=== PATIENT | female | born 1965 | race Caucasian/White ===

== ENCOUNTER → 2016-11-11 | Outpatient (CLI) | payer BC ==
[2012-12-07 11:09] VITALS: BP 111/83
--- NOTE | 2016-11-11 12:21 | MG ---
HISTORY: SCREENING Comparison: July 24, 2009 and August 26, 2012 FINDINGS: Bilateral CC and MLO projections of the right and left breast were obtained. Scattered fibroglandul ar tissue is seen to be present without significant interval change. No suspicious architectural di stortion, mass or clustered microcalcifications can be observed to suggest malignancy. No skin thic kening or nipple retraction is appreciated. No pathological lymphadenopathy can be identified. The re are benign appearing intramammary lymph nodes bilaterally. Benign-appearing calcifications are no pavan within the right and left breast. IMPRESSION: NO RADIOGRAPHIC EVIDENCE OF MALIGNANCY. ACR CATEGORY 2 - benign findings. FOLLOW-UP EXAM 1 YEAR. Diagnostic CAD was utilized and reviewed. * 0 (ZERO) - ASSESSMENT INCOMPLETE; ADDITIONAL IMAGING IS NEEDED. * 1/1 (ONE) - NEGATIVE. * 2/II (TWO) - BENIGN FINDINGS. * 3/III (THREE) - PROBABLY BENIGN FINDING; SHORT INTERVAL FOLLOW-UP SUGGESTED. * 4/IV (FOUR) - SUSPICIOUS ABNORMALITY; BIOPSY SHOULD BE CONSIDERED. * 5/V (FIVE) - HIGHLY SUSPICIOUS OF MALIGNANCY; BIOPSY SHOULD BE PERFORMED. A NEGATIVE X-RAY REPORT SHOULD NOT DELAY BIOPSY IF A DOMINANT OR CLINICALLY SUSPICIOUS MASS IS PRESENT; 4 TO 8 PERCENT OF CANCERS ARE NOT IDENTIFIED BY X-RAY. A NEG ATIVE REPORT MAY REINFORCE THE CLINICAL IMPRESSION. ADENOSIS AND DENSE BREASTS MAY OBSCURE AN UNDER LYING NEOPLASM. Reported By:
== END ==
LOC: RAD 09:07
PROVIDERS: ATTEND Nurse Practitioner Family
DX: Z12.31 Encounter for screening mammogram for malignant neoplasm of breast (principal)
CPT/HCPCS: 77067

== ENCOUNTER 2017-02-19 13:39 | Observation (INO) | payer BC ==
--- NOTE | 2017-02-19 14:48 | DR.GENAD ---
HPI - PCP Primary Care Physician: HEMANTH TEAGUE - Complaint/Symptoms Chief Complaint Doctors Comments: I agree with statement as reported. Chief Complaint:: WEAKNESS AND NO ENERGY. HAS HAD A ONEIL BLOOD SUGAR Self Treatment fo Chief Complaint: HAS BEEN ON BLOOD SUGAR MEDS. HAS BEEN SICK WITH A COLD AND CONGESTION FOR THE LAST WEEK - Source History Provided: Patient - Mode of Arrival Mode of Arrival: Ambulatory - Timing Onset of Chief Complaint: 02/14/17 PMH - PMH Past Medical History: Yes Past Medical History: Coronary Artery Disease, Diabetes, Hypertension, Hypothyroidism Past Surgical History: Yes Surgical History: Cholecystectomy - Family History History of Family Medical Conditions: Yes Family Medical History: Diabetes Mellitus, Cancer, [place], Coronary Artery Disease, Heart Failure, Sudden Cardiac , Hypertension - Social History Alcohol Use: None Do you use any recreational Drugs:: No Lives With: Family Lives Where: Home - infectious screening In the last 2 months have you had wt loss of >10#?: NO Have you had fever, night sweats or hemotysis?: No Have you traveled outside the country in the last 6 months?: No Isolation: Standard ROS - Review of Systems Eyes: No Symptoms Reported ENTM: No Symptoms Reported Respiratoy: No Symptoms Reported Cardiovascular: No Symptoms Reported Gastrointestinal/Abdominal: No Symptoms Reported Genitourinary: No Symptoms Reported Neurological: No Symptoms Reported Musculoskeletal: No Symptoms Reported Integumentary: No Symptoms Reported Hematologic/Lymphatic: No Symptoms Reported Endocrine: No Symptoms Reported Psychiatric: No Symptoms Reported All Other Systems: Reviewed and Negative PE - Vital Signs Vitals: Temperature 98.2 F Pulse Rate 101 Respiratory Rate 18 Blood Pressure 122/81 O2 Sat by Pulse Oximetry 98 - General Limitations: No Limitations General Appearance: Alert, In No Apparent Distress - Head Head Exam: Normal Inspection, Atraumatic - Eyes Eye exam: Normal Appearance, PERRL, EOMI - ENT ENT Exam: Normal Exam External Ear Exam: Normal External Inspection TM/Canal Exam: Bilateral Normal Nose Exam: Normal Nose Exam Mouth Exam: Normal Inspection Throat Exam: Normal Inspection - Neck Neck Exam: Normal Inspection - Chest Chest Inspection: Normal Inspection - Respiratory Respiratory Exam: Normal Lung Sounds Bilat Respiratory Exam: Bilateral Clear to Auscultation - Cardiovascular Cardiovascular Exam: Regular Rate, Normal Rhythm - Abdominal Exam Abdominal Exam: Normal Inspection, Normal Bowel Sounds Abdominal Tenderness: negative: RUQ, RLQ, LUQ, LLQ, Epigastrium, Suprapubic, Diffuse, Mild, Moderate, Severe, Other - Extremities Extremities Exam: Normal Inspection, Full ROM - Back Back Exam: Normal Inspection, Full ROM - Neurologic Neurological Exam: Alert, Oriented X3, CN II-XII Intact - Psychiatric Psychiatric Exam: Normal Affect, Normal Mood - Skin Skin Exam: Warm, Dry, Intact Course - Reevaluation 1st: Unchanged - Consultation Called: 16:05 (Dr Sy returned called agreed to admit for further management) ROR - Labs Reviewed Result Diagrams: 02/19/17 14:55 02/19/17 14:55 Laboratory: WBC 16.3 X10^3/uL (3.6-10.0) H 02/19/17 14:55 RBC 5.35 X10^6/uL (3.5-5.4) 02/19/17 14:55 Hgb 15.2 g/dL (12.0-16.0) 02/19/17 14:55 Hct 45.1 % (36.0-47.0) 02/19/17 14:55 MCV 84.3 fL (80.0-100.0) 02/19/17 14:55 MCH 28.5 pg (27.0-34.0) 02/19/17 14:55 MCHC 33.8 g/dL (33.0-35.0) 02/19/17 14:55 RDW 14.2 % (11.6-16.5) 02/19/17 14:55 Plt Count 486 X10^3/uL (150.0-450.0) H 02/19/17 14:55 MPV 9.5 fL (7.4-11.0) 02/19/17 14:55 Neut % 69.4 % (42.0-75.0) 02/19/17 14:55 Lymph % 25.0 % (21.0-51.0) 02/19/17 14:55 [place] % 3.3 % (0.0-13.0) 02/19/17 14:55 Eos % 1.5 % (0.9-2.9) 02/19/17 14:55 Baso % 0.8 % (0.2-1.0) 02/19/17 14:55 Neut # 11.3 x10^3/uL (2.2-4.8) H 02/19/17 14:55 Lymph # 4.1 X10^3/uL (1.3-2.9) H 02/19/17 14:55 [place] # 0.5 x10^3/uL (0.3-0.8) 02/19/17 14:55 Eos # 0.2 x10^3/uL (0.0-0.2) 02/19/17 14:55 Baso # 0.1 X10^3/uL (0.0-0.1) 02/19/17 14:55 Absolute Nucleated RBC 0.1 /100WBC 02/19/17 14:55 Sodium 134 mmol/L (136-145) L 02/19/17 14:55 Corrected Sodium 138 mmol/L (136-145) 02/19/17 14:55 Potassium 4.5 mmol/L (3.5-5.1) 02/19/17 14:55 Chloride 98 mmol/L (98-107) 02/19/17 14:55 Carbon Dioxide 24.1 mmol/L (21-32) 02/19/17 14:55 BUN 48 mg/dL (7-18) H 02/19/17 14:55 Creatinine 1.22 mg/dL (0.55-1.02) H 02/19/17 14:55 Est GFR (MDRD) Af Amer > 60 (>60) 02/19/17 14:55 Est GFR (MDRD) Non-Af 50 (>60) L 02/19/17 14:55 Glucose 273 mg/dL (65-99) H 02/19/17 14:55 Hemoglobin A1c 9.3 % (4.5-6.2) H 02/19/17 14:55 Calcium 9.8 mg/dL (8.5-10.1) 02/19/17 14:55 Corrected Calcium TNP 02/19/17 14:55 Total Bilirubin 0.30 mg/dL (0.2-1.0) 02/19/17 14:55 AST 41 Units/L (15-37) H 02/19/17 14:55 ALT 74 Units/L (12-78) 02/19/17 14:55 Alkaline Phosphatase 51 Units/L (46-116) 02/19/17 14:55 Total Protein 8.7 g/dL (6.4-8.2) H 02/19/17 14:55 Albumin 4.5 g/dL (3.4-5.0) 02/19/17 14:55 Globulin 4.2 g/dL (2.5-4.5) 02/19/17 14:55 Albumin/Globulin Ratio 1.1 Ratio (1.1-2.1) 02/19/17 14:55 Specimen Type Clean catch urine 02/19/17 14:57 Urine Color Yellow (YELLOW) 02/19/17 14:57 Urine Appearance Hazy (CLEAR) 02/19/17 14:57 Urine pH 5.0 (5.0 - 8.0) 02/19/17 14:57 Ur Specific [place] 1.010 (1.000-1.030) 02/19/17 14:57 Urine Protein Negative (NEGATIVE) 02/19/17 14:57 Urine Glucose (UA) 4+ (NEGATIVE) 02/19/17 14:57 Urine Ketones Negative (NEGATIVE) 02/19/17 14:57 Urine Occult Blood Negative (NEGATIVE) 02/19/17 14:57 Urine Nitrite Negative (NEGATIVE) 02/19/17 14:57 Urine Bilirubin Negative (NEGATIVE) 02/19/17 14:57 Urine Urobilinogen Normal (NORMAL) 02/19/17 14:57 Ur Leukocyte Esterase 1+ (NEGATIVE) 02/19/17 14:57 Urine RBC 0-2 /HPF (NEGATIVE) 02/19/17 14:57 Urine WBC 0-2 /HPF (NEGATIVE) 02/19/17 14:57 Ur Squamous Epith Cells Rare /HPF (NEGATIVE) 02/19/17 14:57 Urine Bacteria Trace /HPF (NEGATIVE) 02/19/17 14:57 Ur Culture Indicated? No/not indicated 02/19/17 14:57 - XRAY XRAY Interpreted by: Radiologist (Chest: No acute cardiopulmonary disease) - Diagnosis Discharge Problem: Acute prerenal azotemia, Dehydration - Discharge Plan Condition: Stable - Follow ups/Referrals Follow ups/Referrals: ANGEL TEAGUE [Primary Care Provider] - 3 days - Instructions
[2017-02-19] MEDS ORDERED: NS 1000 ML 1,000 ML IV ONE (14:50)
[2017-02-19] MEDS ORDERED: NS 1000 ML 1,000 ML ONE ×3 (14:58→18:10)
[2017-02-19 15:09] LABS: BASOPHILS # (AUTO) 0.1 X10^3/uL (0.0-0.1); BASOPHILS % (AUTO) 0.8 % (0.2-1.0); EOSINOPHILS # (AUTO) 0.2 x10^3/uL (0.0-0.2); EOSINOPHILS % (AUTO) 1.5 % (0.9-2.9); HEMATOCRIT 45.1 % (36.0-47.0); HEMOGLOBIN 15.2 g/dL (12.0-16.0); LYMPHOCYTES # (AUTO) 4.1 X10^3/uL (1.3-2.9); MEAN CORPUSCULAR HEMOGLOBIN 28.5 pg (27.0-34.0); MEAN CORPUSCULAR HGB CONC 33.8 g/dL (33.0-35.0); MEAN CORPUSCULAR VOLUME 84.3 fL (80.0-100.0); MEAN PLATELET VOLUME 9.5 fL (7.4-11.0); MONOCYTES # (AUTO) 0.5 x10^3/uL (0.3-0.8); MONOCYTES % (AUTO) 3.3 % (0.0-13.0); NEUTROPHILS # (AUTO) 11.3 x10^3/uL (2.2-4.8); NEUTROPHILS % (AUTO) 69.4 % (42.0-75.0); PLATELET COUNT 486 X10^3/uL (150.0-450.0); RED BLOOD COUNT 5.35 X10^6/uL (3.5-5.4); RED CELL DISTRIBUTION WIDTH 14.2 % (11.6-16.5); WHITE BLOOD COUNT 16.3 X10^3/uL (3.6-10.0)
[2017-02-19 15:21] LABS: ALANINE AMINOTRANSFERASE 74 Units/L (12-78); ALBUMIN 4.5 g/dL (3.4-5.0); ALKALINE PHOSPHATASE 51 Units/L (46-116); ASPARTATE AMINO TRANSFERASE 41 Units/L (15-37); BLOOD UREA NITROGEN 48 mg/dL (7-18); CALCIUM 9.8 mg/dL (8.5-10.1); CARBON DIOXIDE 24.1 mmol/L (21-32); CHLORIDE 98 mmol/L (98-107); COR NA(FOR HYPERGLY) 138 mmol/L (136-145); CREATININE 1.22 mg/dL (0.55-1.02); GLUCOSE 273 mg/dL (65-99); SODIUM 134 mmol/L (136-145); TOTAL PROTEIN 8.7 g/dL (6.4-8.2); eGFR BLACK RACES > 60 (>60); eGFR NON BLACK RACES 50 (>60)
[2017-02-19 15:22] LABS: HEMOGLOBIN A1C 9.3 % (4.5-6.2)
--- NOTE | 2017-02-19 15:34 | RAD ---
HISTORY: Weakness Study: Chest two-view Comparison: None Findings: The trachea is midline. The cardiac silhouette is unremarkable. The lungs are clear without focal infiltrate or effusion. The bony thorax is unremarkable. IMPRESSION: 1. No acute cardiopulmonary disease. Reported By:
[2017-02-19 16:19] LABS: BILIRUBIN,URINE NEGATIVE (NEGATIVE); BLOOD/HEMOGLOBIN,URINE NEGATIVE (NEGATIVE); GLUCOSE, URINE 4+ (NEGATIVE); KETONES,URINE NEGATIVE (NEGATIVE); LEUKOCYTE ESTERASE ,URINE 1+ (NEGATIVE); NITRITES,URINE NEGATIVE (NEGATIVE); PROTEIN,URINE NEGATIVE (NEGATIVE); UROBILINOGEN,URINE NORMAL (NORMAL)
[2017-02-19 16:20] LABS: APPEARANCE,URINE HAZY (CLEAR); BACTERIA,URINE TRACE /HPF (NEGATIVE); COLOR,URINE YELLOW (YELLOW); RBC,URINE 0-2 /HPF (NEGATIVE); SQUAMOUS EPITHELIAL CELL,UR RARE /HPF (NEGATIVE)
[2017-02-19] MEDS ORDERED: HumuLIN R SUBCUT PRN (16:31)
[2017-02-19] MEDS: NS 1000 ML 1,000 ML IV SCH ×3 (16:34→23:00)
[2017-02-19] MEDS ORDERED: GLIPIZIDE 20 MG PO SCH (21:00)
[2017-02-19] MEDS ORDERED: GLUCOPHAGE XR PO SCH (21:00)
[2017-02-19] MEDS: TRICOR TAB 160 MG PO SCH (21:28)
[2017-02-19] MEDS: ZOCOR TAB 40 MG PO SCH (21:28)
[2017-02-19] MEDS: NAPROSYN PO SCH (21:28)
[2017-02-20] MEDS: NS 1000 ML 1,000 ML IV SCH ×4 (03:47→16:13)
[2017-02-20] MEDS ORDERED: GLUCOPHAGE ONE ×2 (05:49→15:59)
[2017-02-20] MEDS: GLUCOPHAGE PO SCH ×2 (06:11→16:13)
[2017-02-20 06:13] LABS: BASOPHILS # (AUTO) 0.1 X10^3/uL (0.0-0.1); BASOPHILS % (AUTO) 0.6 % (0.2-1.0); EOSINOPHILS # (AUTO) 0.3 x10^3/uL (0.0-0.2); EOSINOPHILS % (AUTO) 2.9 % (0.9-2.9); HEMATOCRIT 33.8 % (36.0-47.0); HEMOGLOBIN 11.7 g/dL (12.0-16.0); LYMPHOCYTES # (AUTO) 3.8 X10^3/uL (1.3-2.9); LYMPHOCYTES % (AUTO) 36.3 % (21.0-51.0); MEAN CORPUSCULAR HEMOGLOBIN 29.2 pg (27.0-34.0); MEAN CORPUSCULAR HGB CONC 34.8 g/dL (33.0-35.0); MEAN CORPUSCULAR VOLUME 83.9 fL (80.0-100.0); MEAN PLATELET VOLUME 9.4 fL (7.4-11.0); MONOCYTES # (AUTO) 0.4 x10^3/uL (0.3-0.8); MONOCYTES % (AUTO) 4.1 % (0.0-13.0); NEUTROPHILS # (AUTO) 5.8 x10^3/uL (2.2-4.8); NEUTROPHILS % (AUTO) 56.1 % (42.0-75.0); PLATELET COUNT 294 X10^3/uL (150.0-450.0); RED BLOOD COUNT 4.03 X10^6/uL (3.5-5.4); RED CELL DISTRIBUTION WIDTH 13.9 % (11.6-16.5); WHITE BLOOD COUNT 10.4 X10^3/uL (3.6-10.0)
[2017-02-20 06:27] LABS: ALANINE AMINOTRANSFERASE 53 Units/L (12-78); ALBUMIN 3.3 g/dL (3.4-5.0); ALKALINE PHOSPHATASE 35 Units/L (46-116); ASPARTATE AMINO TRANSFERASE 25 Units/L (15-37); BLOOD UREA NITROGEN 31 mg/dL (7-18); CALCIUM 8.4 mg/dL (8.5-10.1); CHLORIDE 107 mmol/L (98-107); CHOL/HDL RATIO 12.8 (0.0-5.0); CHOLESTEROL 204 mg/dL (0-200); COR NA(FOR HYPERGLY) 141 mmol/L (136-145); CREATININE 0.89 mg/dL (0.55-1.02); GLUCOSE 179 mg/dL (65-99); HDL CHOLESTEROL 16 mg/dL (40-60); SODIUM 139 mmol/L (136-145); TOTAL PROTEIN 6.2 g/dL (6.4-8.2); eGFR BLACK RACES > 60 (>60); eGFR NON BLACK RACES > 60 (>60)
[2017-02-20 06:57] LABS: TRIGLYCERIDES 798 mg/dL (0-150)
[2017-02-20] MEDS ORDERED: LEXAPRO ONE (07:43)
[2017-02-20] MEDS: ZESTRIL TAB 10 MG PO SCH (08:15)
[2017-02-20] MEDS: PriLOSEC PO SCH (08:15)
[2017-02-20] MEDS: DAPAGLIFLOZIN PROPANEDIOL 10 MG PO SCH (08:15)
[2017-02-20] MEDS: LEXAPRO PO SCH (08:15)
[2017-02-20] MEDS: ASPIRIN PO SCH (08:15)
[2017-02-20] MEDS: NAPROSYN PO SCH ×2 (08:15→21:30)
[2017-02-20] MEDS: SYNTHROID 175 mcg TAB PO SCH (08:15)
[2017-02-20] MEDS ORDERED: DAPAGLIFLOZIN PROPANEDIOL 5 MG PO SCH (09:00)
[2017-02-20] MEDS: ZOSYN VIAL 4.5 GM 4.5 GM in NS 100 ML IV + SPIKE MINIBAG* 100 ML IV SCH ×3 (09:39→21:29)
[2017-02-20] MEDS ORDERED: GLUCOTROL PO SCH (21:00)
[2017-02-20] MEDS: ZOCOR TAB 40 MG PO SCH (21:30)
[2017-02-20] MEDS: TRICOR TAB 160 MG PO SCH (21:30)
[2017-02-21] MEDS: NS 1000 ML 1,000 ML IV SCH (01:02)
[2017-02-21] MEDS ORDERED: GLUCOPHAGE ONE (06:03)
[2017-02-21] MEDS: ZOSYN VIAL 4.5 GM 4.5 GM in NS 100 ML IV + SPIKE MINIBAG* 100 ML IV SCH (06:13)
[2017-02-21] MEDS: GLUCOPHAGE PO SCH (06:13)
[2017-02-21 06:32] LABS: BASOPHILS # (AUTO) 0.1 X10^3/uL (0.0-0.1); BASOPHILS % (AUTO) 0.9 % (0.2-1.0); EOSINOPHILS # (AUTO) 0.3 x10^3/uL (0.0-0.2); EOSINOPHILS % (AUTO) 3.7 % (0.9-2.9); HEMATOCRIT 30.8 % (36.0-47.0); HEMOGLOBIN 10.6 g/dL (12.0-16.0); LYMPHOCYTES # (AUTO) 3.2 X10^3/uL (1.3-2.9); LYMPHOCYTES % (AUTO) 36.8 % (21.0-51.0); MEAN CORPUSCULAR HEMOGLOBIN 29.4 pg (27.0-34.0); MEAN CORPUSCULAR HGB CONC 34.4 g/dL (33.0-35.0); MEAN CORPUSCULAR VOLUME 85.4 fL (80.0-100.0); MEAN PLATELET VOLUME 10.5 fL (7.4-11.0); MONOCYTES # (AUTO) 0.4 x10^3/uL (0.3-0.8); MONOCYTES % (AUTO) 4.3 % (0.0-13.0); NEUTROPHILS # (AUTO) 4.8 x10^3/uL (2.2-4.8); NEUTROPHILS % (AUTO) 54.3 % (42.0-75.0); PLATELET COUNT 228 X10^3/uL (150.0-450.0); RED BLOOD COUNT 3.61 X10^6/uL (3.5-5.4); RED CELL DISTRIBUTION WIDTH 13.9 % (11.6-16.5); WHITE BLOOD COUNT 8.8 X10^3/uL (3.6-10.0)
[2017-02-21 06:35] LABS: ALANINE AMINOTRANSFERASE 48 Units/L (12-78); ALBUMIN 3.1 g/dL (3.4-5.0); ALKALINE PHOSPHATASE 32 Units/L (46-116); ASPARTATE AMINO TRANSFERASE 18 Units/L (15-37); BLOOD UREA NITROGEN 23 mg/dL (7-18); CALCIUM 8.3 mg/dL (8.5-10.1); CARBON DIOXIDE 23.8 mmol/L (21-32); CHLORIDE 109 mmol/L (98-107); COR NA(FOR HYPERGLY) 145 mmol/L (136-145); CREATININE 0.93 mg/dL (0.55-1.02); GLUCOSE 261 mg/dL (65-99); SODIUM 141 mmol/L (136-145); TOTAL PROTEIN 5.8 g/dL (6.4-8.2); eGFR BLACK RACES > 60 (>60); eGFR NON BLACK RACES > 60 (>60)
[2017-02-21] MEDS ORDERED: LEXAPRO ONE (08:51)
[2017-02-21] MEDS: PriLOSEC PO SCH (08:54)
[2017-02-21] MEDS: ASPIRIN PO SCH (08:55)
[2017-02-21] MEDS: SYNTHROID 175 mcg TAB PO SCH (08:55)
[2017-02-21] MEDS: ZESTRIL TAB 10 MG PO SCH (08:55)
[2017-02-21] MEDS: DAPAGLIFLOZIN PROPANEDIOL 10 MG PO SCH (08:55)
[2017-02-21] MEDS: LEXAPRO PO SCH (08:55)
[2017-02-21] MEDS: NAPROSYN PO SCH (08:55)
[2017-02-21 09:15] VITALS: BP 102/54
[2017-02-21 09:50] VITALS: BMI 29.5
--- NOTE | 2017-02-21 22:09 | DR.H&P ---
H&P - History & Physical for Day of: H&P Date: 02/19/17 - Chief Complaint Chief Complaint: Hyperglycenia, weakness - Allergies Allergies/Adverse Reactions: Allergies Allergy/AdvReac Type Severity Reaction Status Date / Time codeine Allergy Unknown Verified 02/20/17 06:09 - History of Present Illness History of Present Illness: Patient is a 51yo female who presented to the emergency room with complaints of weakness, fatigue and hyperglycemia. Patient state she has been sick with a cold and congestion for the last week. Patient has a history of Coronary artery disease, diabetes mellitus type 2, hypertension , hypothyroidism. Vital signs on arrival 98.2, 101, 18, 98%, 122/81. Labs are within normal limits with the exception of WBC 16.3, Plt count 486, Neut# 11.3, Lymph# 4.1, Sodium 134, BUN 48, Creatinine 1.22, Est GFR 50, Glucose 273, Hgb A1C 9.3, AST 41, Total Protein 8.7. Streptococcus Screen positive A. Chest Xray no acute cardiopulmonary disease. Patient given a nS bolus in the ER, Patient admitted with prerenal azotemia and dehydration. PAteitn started on OTBS ACHS. Home medications resumed and started on NS@300 ml/hr. - Past Medical History Past Medical History: Coronary Artery Disease, Diabetes, Dyslipidemia, Hypertension, Hypothyroidism - Past Surgical History Surgical History: Cholecystectomy - Family History Family Medical History: Diabetes Mellitus, Cancer, [place], Coronary Artery Disease, Hypertension - Social History Does patient currently use any type of tobacco product: No Have you used tobacco products in the last 12 months: No Type of Tobacco Use: None Does any household member use tobacco: No Alcohol Use: None Drug Use: None - Medications Home Medications: Aspirin [ASPIRIN 325 MG *] 325 mg PO DAILY 02/19/17 [History Confirmed 02/19/17] Dapagliflozin Propanediol [Farxiga] 10 mg PO DAILY 02/19/17 [History Confirmed 02/19/17] Diclofenac Sodium 75 mg PO BID 02/19/17 [History Confirmed 02/19/17] Escitalopram Oxalate [LEXAPRO 10 MG TAB *] 10 mg PO DAILY 02/19/17 [History Confirmed 02/19/17] Fenofibrate [TRICOR 160 MG *] 160 mg PO HS 02/19/17 [History Confirmed 02/19/17] Glipizide [Glipizide 10 mg] 20 mg PO HS 02/19/17 [History Confirmed 02/19/17] Levothyroxine Sodium 175 mcg PO DAILY 02/19/17 [History Confirmed 02/19/17] Lisinopril [ZESTRIL *] 10 mg PO DAILY 02/19/17 [History Confirmed 02/19/17] - Review of Systems Constitutional: Weakness Eyes: No Symptoms Reported ENT: Nose Discharge, Nose Congestion, Throat Pain Respiratory: No Symptoms Reported Cardiovascular: No Symptoms Reported Gastrointestinal: No Symptoms Reported Genitourinary: No Symptoms Reported Musculoskeletal: No Symptoms Reported Skin: No Symptoms Reported Neurological: Weakness - Physical Exam Vital Signs: 98.2, 101, 18, 98%, 122/81 Oriented: Normal Eyes: Normal Ear: Normal Nose: Normal Throat: Normal Respiratory: Clear Throughout Cardiovascular: Normal : Normal Auscultation: Bowel Sounds: Normal Palpation: Normal Tenderness: Normal Skin: Decreased Turgur Musculoskeletal: Normal Psychiatric: Normal Mood Description: Calm, Appropriate Affect: Normal Speech Pattern: Clear, Appropriate - Assessment/Plan (1) Acute prerenal azotemia Status: Acute Plan: NS@300ml, monitor (2) Dehydration Status: Acute Plan: NS@300ml, monitor (3) Diabetes mellitus, type 2 Qualifiers: Diabetes mellitus complication status: D Diabetes mellitus complication detail: D Diabetic retinopathy severity: D Proliferative retinopathy type: P Diabetes mellitus macular edema: D 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
--- NOTE | 2017-02-21 22:15 | PCM.PROG ---
Progress Note - Progress Note for Day of Date: 02/20/17 - Subjective Subjective: Patient states she is still feeling rough this am. Patient laying in bed and appears ill. We are going to start patient on zoyn 4.5gm IV Q8hr and decreased her fluid to 150. Vital sign this am 97.9, 63, 18, 96%, 102/51. Labs within normal limits with the exception of WBC 10.4, Hgb 11.7, Hct 33.8, Neut# 5.8, Lymph# 3.8, Eos# 0.3, BUN 31, Glucose 179, Calcium 8.4, Alkaline Phosphatase 35, total Protein 6.2, Albumin 3.3, Triglycerides 798, Cholesterol 204, HS=DL 16, Cholesterol/HDL Ratio 12.8. WE will continue patient on current treatment with the addition of zosyn for her strep throat and follow up in the am with repeat lab. - Past Medical Family Social History Past Med/Fam/Surg Hx: No changes since H&P Allergies: Allergies codeine Allergy (Unknown, Verified 02/20/17 06:09) - Review of Systems ROS: No change since H&P - Vital Signs and I&O's Vital Signs: 97.9, 63, 18, 96%, 102/51 Intake and Output: Intake & Output 02/19/17 02/20/17 02/21/17 02/22/17 11:59 11:59 11:59 11:59 Intake Total 3013 3680 Balance 3013 3680 - Physical Exam Oriented: Normal Eyes: Normal Ear: Normal Nose: Normal Throat: Normal Respiratory: Normal Cardiovascular: Normal : Normal Auscultation: Bowel Sounds: Normal Palpation: Normal Tenderness: Normal Skin: Decreased Turgur Musculoskeletal: Normal Psychiatric: Normal Mood Description: Calm, Appropriate Affect: Normal Speech Pattern: Clear, Appropriate - Laboratory and Diagnostics Result Diagrams: 02/21/17 04:55 02/21/17 04:55 Labs: Labs within normal limits with the exception of WBC 10.4, Hgb 11.7, Hct 33.8, Neut# 5.8, Lymph# 3.8, Eos# 0.3, BUN 31, Glucose 179, Calcium 8.4, Alkaline Phosphatase 35, total Protein 6.2, Albumin 3.3, Triglycerides 798, Cholesterol 204, HS=DL 16, Cholesterol/HDL Ratio 12.8. 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
--- NOTE | 2017-02-21 22:23 | DR.CARTERD ---
- Discharge Summary for: Discharge Summary for Date of:: 02/21/17 - Admission Date Date of Admission: 02/19/17 - Admission Diagnoses Admission Diagnosis: Prerenal azotemia. Dehydration. Diabet Mellitus Type 2. Hypertension. Hyperlipidemia. Hypertriglyceridemia - Discharge Date Discharge Date: 02/21/17 - Discharge Diagnoses Discharge Diagnosis: SStreptcoccal pharyngitis Prerenal azotemia Dehydration Diabet Mellitus Type 2 Hypertension Hyperlipidemia Hypertriglyceridemia - Hospital Course Hospital Course: Patient states she is feeling much better this am. Vital signs are 97.8, 55, 18 , 96%, 102/55. Labs within normal limits with the exception og Hgb 10.6, Hct 30.8, Eos% 3.7, Lymph# 3.2, Eos# 0.3, Chloride 109, BUN 23, Glucose 261, Calcium 8.3, Alkaline phosphatase 32, Total Protein 5.8, Albumin 3.1. We are going to discharge her home to follow up in 1 week in table condtion. Patient is to resume her home medication with the addition of Augmentin 875mg PO BID for 7days. Labs: Labs within normal limits with the exception og Hgb 10.6, Hct 30.8, Eos% 3.7, Lymph# 3.2, Eos# 0.3, Chloride 109, BUN 23, Glucose 261, Calcium 8.3, Alkaline phosphatase 32, Total Protein 5.8, Albumin 3.1. - Discharge Medications Discharge Medications: Aspirin [ASPIRIN 325 MG *] 325 mg PO DAILY 02/19/17 [History] Dapagliflozin Propanediol [Farxiga] 10 mg PO DAILY 02/19/17 [History] Diclofenac Sodium 75 mg PO BID 02/19/17 [History] Escitalopram Oxalate [LEXAPRO 10 MG TAB *] 10 mg PO DAILY 02/19/17 [History] Fenofibrate [TRICOR 160 MG *] 160 mg PO HS 02/19/17 [History] Glipizide [Glipizide 10 mg] 20 mg PO HS 02/19/17 [History] Levothyroxine Sodium 175 mcg PO DAILY 02/19/17 [History] Lisinopril [ZESTRIL *] 10 mg PO DAILY 02/19/17 [History] Amoxicillin & Pot Clavulanate [AUGMENTIN TAB 875 mg/125 mg *] 1 tab PO BID #28 tab 02/21/17 [Rx] - Discharge Disposition Discharge Disposition: Home
== END 2017-02-21 10:00 | disposition home or self-care (01) ==
LOC: ER 13:53 → MED/SURG 16:28
PROVIDERS: ADMIT Internal Medicine; ATTEND Internal Medicine
DX: E86.0 Dehydration (principal); I25.10 Atherosclerotic heart disease of native coronary artery without angina pectoris; E11.65 Type 2 diabetes mellitus with hyperglycemia; I10 Essential (primary) hypertension; E03.8 Other specified hypothyroidism; R53.1 Weakness; E78.2 Mixed hyperlipidemia; J02.0 Streptococcal pharyngitis; E78.1 Pure hyperglyceridemia; D72.828 Other elevated white blood cell count; R94.4 Abnormal results of kidney function studies
CPT/HCPCS: 36415; 71020; 80053; 80061; 81001; 83036; 85025; 87880; 94760; 96365; 96367; 99284; A4222; G0378; J2543

== ENCOUNTER 2017-11-06 14:32 | Inpatient (IN) | payer BC ==
[2017-11-06 14:49] VITALS: BMI 26.6
[2017-11-06] MEDS ORDERED: NS 1000 ML 1,000 ML ONE (14:55)
[2017-11-06] MEDS ORDERED: CARDIZEM INJ 125 MG VIAL 125 MG in NS 100 ML IV 100 ML IV PRN (15:17)
[2017-11-06] MEDS ORDERED: CARDIZEM INJ 50 MG VIAL IVP ONE ×2 (15:20→15:21)
[2017-11-06] MEDS ORDERED: CARDIZEM INJ 50 MG VIAL ONE ×2 (15:22→16:50)
--- NOTE | 2017-11-06 15:22 | DR.GENAD ---
HPI - Complaint/Symptoms Chief Complaint Doctors Comments: Patient is complaining of chest discomfort with SOB with her heart beating fast for a short period for the past five days. States it went away earlier and it came back with achest discomfort when her heart beat fast with with discomfort in her throat. She denies nausea, vomiting , cold, cough, fever or chills. She denies tobaccor or alcohol usage. States she is taking medicines for high blood pressure and thyroid medicines. states she has taken an aspirin 325mg today. She denies swelling of feet or legs. She denies any recent trauma. Chief Complaint:: " PT C/O CALLING INTO WORK ON WEDNESDAY THAT SHE THOUGHT SHE HAD A PULLED MUSCLE BUT IT IS GETTING WORSE PT C/O FEELING LIKE HER HEART IS FLUTTERING AND SPEEDING UP AND SLOWING DOWN PT DENIES ANY PAIN JUST, SOB AND TIGHTNESS TO HER CHEST":. Self Treatment fo Chief Complaint: PT TOOK ASA 325 MG .. - Nurses notes reviewed Nurses Notes Review: Yes - Source History Provided: Patient - Mode of Arrival Mode of Arrival: Ambulatory - Timing Onset of Chief Complaint: 11/03/17 Came on: Gradually - Duration Duration: Intermittent How lon Duration: Days - Location Location: xiphoid - Severity Severity: Moderate - Modifying Factors Worsens:: palpation Improves:: nothing PMH - PMH Past Medical History: Yes Past Medical History: Coronary Artery Disease, Diabetes, Dyslipidemia, Hypertension, Hypothyroidism Past Surgical History: Yes Surgical History: Cholecystectomy - Family History History of Family Medical Conditions: Yes Family Medical History: Diabetes Mellitus, Cancer, [place], Coronary Artery Disease, Hypertension - Social History Does patient currently use any type of tobacco product: No Have you used tobacco products in the last 12 months: No Type of Tobacco Use: None Does any household member use tobacco: No Alcohol Use: None Do you use any recreational Drugs:: No Lives With: Family Lives Where: Home - infectious screening In the last 2 months have you had wt loss of >10#?: NO Have you had fever, night sweats or hemotysis?: No Have you traveled outside the country in the last 6 months?: No Isolation: Standard ROS - Review of Systems Constitutional: No Symptoms Reported. negative: See HPI, Chills, Diaphoresis, Fever, Malaise, Weakness, Irritable, Fatigue, Loss of Appetite, Other Eyes: No Symptoms Reported ENTM: No Symptoms Reported. negative: See HPI, Ear Pain, Ear Discharge, Pulling on Ears, Hearing Loss, Nose Pain, Nose Discharge, Epistaxis, Nose Congestion, Mouth Pain, Mouth Swelling, Loose Teeth, Drooling, Throat Pain, Throat Swelling, Ear Foreign Body Respiratoy: No Symptoms Reported, Short of Breath. negative: See HPI, Productive Cough, Non-Productive Cough, Moist Cough, Dry Cough, Hacking Cough, Barking Cough, Brassy Cough, Orthopnea, Stridor, Wheezing, Hemoptysis, Other Cardiovascular: No Symptoms Reported, Chest Pain, Palpitations. negative: See HPI, Edema, Syncope, Cyanosis, Skin Mottling, Other Gastrointestinal/Abdominal: No Symptoms Reported. negative: See HPI, Abdominal Pain, Constipation, Diarrhea, Nausea, Vomiting, Food Intolerance, Other Genitourinary: No Symptoms Reported Neurological: No Symptoms Reported, Anxiety, Emotional Problems. negative: See HPI, Depressed, Headache, Numbness, Paresthesia, Pre-existing Deficit, Seizure, Tingling, Tremors, Weakness, Dizziness, Problems Walking, Speech Problem, Other Musculoskeletal: No Symptoms Reported. negative: See HPI, Back Pain, Gout, Joint Pain, Joint Swelling, Muscle Pain, Muscle Stiffness, Neck Pain, Right, Left, Neck, Chest wall, Rib(s), Back, Shoulder, Arm, Elbow, Forearm, Wrist, Hand , Pelvis, Hip, Leg, Knee, Ankle, Foot, Other Integumentary: No Symptoms Reported Hematologic/Lymphatic: No Symptoms Reported Endocrine: No Symptoms Reported. negative: See HPI, Excessive Sweating, Flushing, Intolerance to Cold, Intolerance to Heat, Increased Hunger, Increased Thirst, Increased Urine, Unexplained Weight Gain, Unexplained Weight Loss, Failure to Thrive, Decreased Appetite, Other Psychiatric: No Symptoms Reported, Anxiety. negative: See HPI, Depression, Hallucinations, Excessive crying, Suicidal, Other PE - Vital Signs Vitals: Temperature 98.2 F Pulse Rate [Left Apical] 94 Pulse Rate 20 Respiratory Rate 20 Blood Pressure [Right Arm] 126/61 Blood Pressure 190/90 O2 Sat by Pulse Oximetry 94 - General Limitations: No Limitations General Appearance: Alert, In Distress (moderate) - Head Head Exam: Normal Inspection, Atraumatic, Normocephalic - Eyes Eye exam: Normal Appearance, PERRL, EOMI. negative: Scleral Icterus, Conjunctival Injection, Nystagmus, Miosis, Mydrasis, Periorbital Swelling, Periorbital Tenderness, Other - ENT ENT Exam: Normal Exam, Normal Oropharynx, Normal External Ear Exam, Mucous Membranes Moist, TM's Normal Bilaterally External Ear Exam: Normal External Inspection TM/Canal Exam: Bilateral Normal Nose Exam: Normal Nose Exam Mouth Exam: Normal Inspection. negative: Drooling, Trismus, Lip Swelling, Tongue Elevation, Tongue Swelling, Laceration, Other Throat Exam: Normal Inspection. negative: Tonsillar Erythema, Tonsillomegaly, Tonsillar Exudate, R Peritonsillar Mass, L Peritonsillar Mass, Muffled Voice, Other - Neck Neck Exam: Normal Inspection, Full ROM, Trachea Midline. negative: Tenderness, Meningismus, Lymphadenopathy, Thyromegaly, Other - Chest Chest Inspection: Normal Inspection, Symmetric Chest Wall Rise. negative: Tenderness, Rash, Abscess, Other - Respiratory Respiratory Exam: Normal Lung Sounds Bilat Respiratory Exam: Bilateral Clear to Auscultation - Cardiovascular Cardiovascular Exam: Irregular Rhythm, Systolic Murmur - Abdominal Exam Abdominal Exam: Normal Inspection, Normal Bowel Sounds, Soft. negative: Distention, Tenderness, Guarding, Rebound, Rigidity, Dimnished Bowel Sounds, Hyperactive Bowel Sounds, Hypoactive Bowel Sounds, Organomegaly, Trauma, Incision, Ascites, Mass, Bruit, Pulsatile Mass, Hernia, Other Abdominal Tenderness: negative: RUQ, RLQ, LUQ, LLQ, Epigastrium, Suprapubic, Diffuse, Mild, Moderate, Severe, Other - Extremities Extremities Exam: Normal Inspection, Full ROM, Normal Capillary Refill. negative: Tenderness, Edema, Joint Swelling, Calf Tenderness, Other - Back Back Exam: Normal Inspection, Full ROM - Neurologic Neurological Exam: Alert, Oriented X3, CN II-XII Intact, Reflexes Normal. negative: Normal Gait (gait not tested) - Psychiatric Psychiatric Exam: Normal Affect, Normal Mood. negative: Depressed, Agitated, Anxious, Flat Affect, Manic, Homicidal Ideation, Suicidal Ideation, Other - Skin Skin Exam: Warm, Dry, Intact, Normal Color Course - Consultation Called: 17:53 Call Returned: 17:53 (Dr. Rajput to admit) - Education/Counseling Education/Counseling: Patient, Family Educated On: Treatment, Diagnosis, Needs for Follow Up ROR - Labs Reviewed Laboratory Results Reviewed?: Yes (All labs and xray results reviewed and discussed with patient) Result Diagrams: 03/10/18 15:15 11/06/17 15:15 Laboratory: WBC 9.6 X10^3/uL (3.6-10.0) 11/06/17 15:15 RBC 4.76 X10^6/uL (3.5-5.4) 11/06/17 15:15 Hgb 13.6 g/dL (12.0-16.0) 11/06/17 15:15 Hct 40.2 % (36.0-47.0) 11/06/17 15:15 MCV 84.4 fL (80.0-100.0) 11/06/17 15:15 MCH 28.6 pg (27.0-34.0) 11/06/17 15:15 MCHC 33.8 g/dL (33.0-35.0) 11/06/17 15:15 RDW 14.8 % (11.6-16.5) 11/06/17 15:15 Plt Count 306 X10^3/uL (150.0-450.0) 11/06/17 15:15 MPV 9.6 fL (7.4-11.0) 11/06/17 15:15 Neut % 60.0 % (42.0-75.0) 11/06/17 15:15 Lymph % 33.0 % (21.0-51.0) 11/06/17 15:15 [place] % 4.3 % (0.0-13.0) 11/06/17 15:15 Eos % 1.7 % (0.9-2.9) 11/06/17 15:15 Baso % 1.0 % (0.2-1.0) 11/06/17 15:15 Neut # 5.7 x10^3/uL (2.2-4.8) H 11/06/17 15:15 Lymph # 3.2 X10^3/uL (1.3-2.9) H 11/06/17 15:15 [place] # 0.4 x10^3/uL (0.3-0.8) 11/06/17 15:15 Eos # 0.2 x10^3/uL (0.0-0.2) 11/06/17 15:15 Baso # 0.1 X10^3/uL (0.0-0.1) 11/06/17 15:15 Absolute Nucleated RBC 0.0 /100WBC 11/06/17 15:15 INR Target Range - 11/06/17 15:15 INR 0.98 (0.8-1.3) 11/06/17 15:15 PTT 23.5 SECONDS (22.9-36.5) 11/06/17 15:15 PTT Comment - 11/06/17 15:15 D-Dimer < 100 ng/mL (0-400) 11/06/17 15:15 Sodium 136 mmol/L (136-145) 11/06/17 15:15 Corrected Sodium 145 mmol/L (136-145) 11/06/17 15:15 Potassium 4.5 mmol/L (3.5-5.1) 11/06/17 15:15 Chloride 100 mmol/L (98-107) 11/06/17 15:15 Carbon Dioxide 24.8 mmol/L (21-32) 11/06/17 15:15 BUN 45 mg/dL (7-18) H 11/06/17 15:15 Creatinine 1.37 mg/dL (0.55-1.02) H 11/06/17 15:15 Est GFR (MDRD) Af Amer 52 (>60) L 11/06/17 15:15 Est GFR (MDRD) Non-Af 43 (>60) L 11/06/17 15:15 Glucose 473 mg/dL (65-99) H 11/06/17 15:15 Calcium 9.1 mg/dL (8.5-10.1) 11/06/17 15:15 Corrected Calcium TNP 11/06/17 15:15 Magnesium 1.8 mg/dL (1.7-2.9) 11/06/17 15:15 Total Bilirubin 0.20 mg/dL (0.2-1.0) 11/06/17 15:15 AST 22 Units/L (15-37) 11/06/17 15:15 ALT 49 Units/L (12-78) 11/06/17 15:15 Alkaline Phosphatase 52 Units/L (46-116) 11/06/17 15:15 Creatine Kinase 29 Units/L (26-192) 11/06/17 15:15 CK-MB (CK-2) < 1.0 ng/mL (0-4.0) 11/06/17 15:15 CK/CKMB % Calc 3.5 % (<4) 11/06/17 15:15 Troponin I < 0.02 ng/mL (0-1.5) 11/06/17 15:15 Total Protein 7.4 g/dL (6.4-8.2) 11/06/17 15:15 Albumin 3.8 g/dL (3.4-5.0) 11/06/17 15:15 Globulin 3.6 g/dL (2.5-4.5) 11/06/17 15:15 Albumin/Globulin Ratio 1.1 Ratio (1.1-2.1) 11/06/17 15:15 Free T4 1.14 ng/dL (0.76-1.46) 11/06/17 15:15 TSH 3rd Generation 2.621 uIU/mL (0.358-3.74) 11/06/17 15:15 - XRAY XRAY Interpreted by: Radiologist (CXR: No acute cardiopulmonary process) - EKG Rate: 127 [place]: Normal Rhythm: Afib Block: None Hypertrophy: None ST: Nonsp - Diagnosis Discharge Problem: Atrial fibrillation with RVR, Essential hypertension, Dehydration Diabetes mellitus type 1, uncontrolled Qualifiers: Chronic kidney disease stage: stage 3 (moderate) Chest pain Qualifiers: Chest pain type: other chest pain Qualified Code(s): R07.89 - Other chest pain ; R07.8 - Other chest pain Chronic kidney disease Qualifiers: Chronic kidney disease stage: stage 3 (moderate) Qualified Code(s): N18.3 - Chronic kidney disease, stage 3 (moderate) - Discharge Plan Disposition: ADMITTED INPATIENT Condition: Stable - Follow ups/Referrals Follow ups/Referrals: ANGEL TEAGUE [Primary Care Provider] - 3 days - Instructions
[2017-11-06 15:35] LABS: BASOPHILS # (AUTO) 0.1 X10^3/uL (0.0-0.1); EOSINOPHILS # (AUTO) 0.2 x10^3/uL (0.0-0.2); EOSINOPHILS % (AUTO) 1.7 % (0.9-2.9); HEMATOCRIT 40.2 % (36.0-47.0); HEMOGLOBIN 13.6 g/dL (12.0-16.0); LYMPHOCYTES # (AUTO) 3.2 X10^3/uL (1.3-2.9); MEAN CORPUSCULAR HEMOGLOBIN 28.6 pg (27.0-34.0); MEAN CORPUSCULAR HGB CONC 33.8 g/dL (33.0-35.0); MEAN CORPUSCULAR VOLUME 84.4 fL (80.0-100.0); MEAN PLATELET VOLUME 9.6 fL (7.4-11.0); MONOCYTES # (AUTO) 0.4 x10^3/uL (0.3-0.8); MONOCYTES % (AUTO) 4.3 % (0.0-13.0); NEUTROPHILS # (AUTO) 5.7 x10^3/uL (2.2-4.8); PLATELET COUNT 306 X10^3/uL (150.0-450.0); RED BLOOD COUNT 4.76 X10^6/uL (3.5-5.4); RED CELL DISTRIBUTION WIDTH 14.8 % (11.6-16.5); WHITE BLOOD COUNT 9.6 X10^3/uL (3.6-10.0)
[2017-11-06] MEDS ORDERED: NS 100 ML IV 100 ML IV ONE (15:41)
[2017-11-06] MEDS ORDERED: CARDIZEM INJ 125 MG VIAL ONE (15:41)
--- NOTE | 2017-11-06 15:59 | RAD ---
History: Chest pain. Study: Single-view chest. Comparison: 02/19/2017. Findings: The trachea is midline. The cardiac silhouette is within normal limits. The lungs are clear without f ocal consolidation, pleural effusion or pneumothorax. The bony thorax is grossly unremarkable. Impression: No acute cardiopulmonary process. Reported By:
[2017-11-06] MEDS ORDERED: NS 1000 ML 1,000 ML IV SCH (16:00)
[2017-11-06] MEDS ORDERED: HumuLIN R IV PRN (16:02)
[2017-11-06 16:14] LABS: ALANINE AMINOTRANSFERASE 49 Units/L (12-78); ALBUMIN 3.8 g/dL (3.4-5.0); ALKALINE PHOSPHATASE 52 Units/L (46-116); ASPARTATE AMINO TRANSFERASE 22 Units/L (15-37); BLOOD UREA NITROGEN 45 mg/dL (7-18); CALCIUM 9.1 mg/dL (8.5-10.1); CARBON DIOXIDE 24.8 mmol/L (21-32); CHLORIDE 100 mmol/L (98-107); CKMB % 3.5 % (<4); COR NA(FOR HYPERGLY) 145 mmol/L (136-145); CREATINE KINASE 29 Units/L (26-192); CREATINE KINASE MB < 1.0 ng/mL (0-4.0); CREATININE 1.37 mg/dL (0.55-1.02); FREE T4 (FREE THYROXINE) 1.14 ng/dL (0.76-1.46); MAGNESIUM 1.8 mg/dL (1.7-2.9); SODIUM 136 mmol/L (136-145); TOTAL PROTEIN 7.4 g/dL (6.4-8.2); TROPONIN I < 0.02 ng/mL (0-1.5); TSH (3RD GENERATION) 2.621 uIU/mL (0.358-3.74); eGFR NON BLACK RACES 43 (>60)
[2017-11-06 16:17] LABS: eGFR BLACK RACES 52 (>60)
[2017-11-06] MEDS ORDERED: ATIVAN TAB 1 MG PO PRN (17:59)
[2017-11-06] MEDS ORDERED: MORPHINE SULFATE INJ 2 MG INJ IVP PRN (17:59)
[2017-11-06] MEDS: PROTONIX INJ 40 MG VIAL IVP SCH (18:38)
[2017-11-06] MEDS: NS 1000 ML 1,000 ML IV SCH (18:38)
[2017-11-06 20:40] LABS: CKMB % 4.6 % (<4); CREATINE KINASE 22 Units/L (26-192); CREATINE KINASE MB < 1.0 ng/mL (0-4.0); TROPONIN I < 0.02 ng/mL (0-1.5)
[2017-11-06] MEDS: HumuLIN R SC PRN (20:47)
[2017-11-06] MEDS: LOVENOX INJ 80 MG SYR SC SCH (20:48)
[2017-11-06] MEDS: SNACK - Diabetic Appropriate PO SCH (20:49)
[2017-11-06] MEDS: LOPRESSOR TAB 25 MG PO SCH (21:34)
[2017-11-07] MEDS: NS 1000 ML 1,000 ML IV SCH ×5 (00:18→22:10)
[2017-11-07] MEDS: HumuLIN R SC PRN ×5 (05:42→21:43)
[2017-11-07 06:09] LABS: BASOPHILS # (AUTO) 0.1 X10^3/uL (0.0-0.1); BASOPHILS % (AUTO) 0.9 % (0.2-1.0); EOSINOPHILS # (AUTO) 0.2 x10^3/uL (0.0-0.2); HEMATOCRIT 35.9 % (36.0-47.0); HEMOGLOBIN 12.3 g/dL (12.0-16.0); LYMPHOCYTES # (AUTO) 4.4 X10^3/uL (1.3-2.9); LYMPHOCYTES % (AUTO) 46.7 % (21.0-51.0); MEAN CORPUSCULAR HEMOGLOBIN 28.7 pg (27.0-34.0); MEAN CORPUSCULAR HGB CONC 34.3 g/dL (33.0-35.0); MEAN CORPUSCULAR VOLUME 83.8 fL (80.0-100.0); MEAN PLATELET VOLUME 9.4 fL (7.4-11.0); MONOCYTES # (AUTO) 0.3 x10^3/uL (0.3-0.8); MONOCYTES % (AUTO) 3.6 % (0.0-13.0); NEUTROPHILS # (AUTO) 4.4 x10^3/uL (2.2-4.8); NEUTROPHILS % (AUTO) 46.8 % (42.0-75.0); PLATELET COUNT 297 X10^3/uL (150.0-450.0); RED BLOOD COUNT 4.29 X10^6/uL (3.5-5.4); RED CELL DISTRIBUTION WIDTH 14.4 % (11.6-16.5); WHITE BLOOD COUNT 9.4 X10^3/uL (3.6-10.0)
[2017-11-07 06:40] LABS: ALANINE AMINOTRANSFERASE 43 Units/L (12-78); ALBUMIN 3.3 g/dL (3.4-5.0); ALKALINE PHOSPHATASE 39 Units/L (46-116); ASPARTATE AMINO TRANSFERASE 23 Units/L (15-37); BLOOD UREA NITROGEN 32 mg/dL (7-18); CALCIUM 8.4 mg/dL (8.5-10.1); CARBON DIOXIDE 23.3 mmol/L (21-32); CHLORIDE 108 mmol/L (98-107); CHOL/HDL RATIO 11.4 (0.0-5.0); CHOLESTEROL 205 mg/dL (0-200); COR NA(FOR HYPERGLY) 144 mmol/L (136-145); CREATINE KINASE 20 Units/L (26-192); CREATINE KINASE MB < 1.0 ng/mL (0-4.0); CREATININE 0.96 mg/dL (0.55-1.02); HDL CHOLESTEROL 18 mg/dL (40-60); SODIUM 141 mmol/L (136-145); TOTAL PROTEIN 6.4 g/dL (6.4-8.2); TRIGLYCERIDES 755 mg/dL (0-150); TROPONIN I < 0.02 ng/mL (0-1.5); eGFR BLACK RACES > 60 (>60); eGFR NON BLACK RACES > 60 (>60)
[2017-11-07] MEDS: LOVENOX INJ 80 MG SYR SC SCH ×2 (08:32→21:42)
[2017-11-07] MEDS: LOPRESSOR TAB 25 MG PO SCH ×2 (08:32→21:42)
[2017-11-07] MEDS: PROTONIX INJ 40 MG VIAL IVP SCH (08:32)
--- NOTE | 2017-11-07 11:31 | DR.H&P ---
H&P - History & Physical for Day of: H&P Date: 11/06/17 - Chief Complaint Chief Complaint: CHEST PAIN, SOB - Allergies Allergies/Adverse Reactions: Allergies Allergy/AdvReac Type Severity Reaction Status Date / Time codeine Allergy Unknown Verified 11/06/17 14:39 - History of Present Illness History of Present Illness: 52WF ER ADMISSION AFTER PRESENTING WITH CO CP AND SOB SINCE LAST WEDNESDAY. PT DENIES ANY HX OF AFIB OR CAD. PT HAS HTN AND DM. PT WAS IN AFIB WITH RVR ON ADMISSION. PT ADMITTED TO ICU FOR CARDIAC MONITORING AND TREATMENT FOR ATRIAL FIBRILLATION - Past Medical History Past Medical History: Coronary Artery Disease, Diabetes, Dyslipidemia, Hypertension, Hypothyroidism - Past Surgical History Surgical History: Cholecystectomy - Family History Family Medical History: Diabetes Mellitus, Cancer, [place], Coronary Artery Disease, Hypertension - Social History Does patient currently use any type of tobacco product: No Have you used tobacco products in the last 12 months: No Type of Tobacco Use: None Does any household member use tobacco: No Alcohol Use: None Drug Use: None - Medications Home Medications: Aspirin [ASPIRIN 325 MG *] 1 tab PO DAILY 11/06/17 [History Confirmed 11/07/17] Atorvastatin Calcium [LIPITOR Tab 10 mg *] 1 tab PO HS 11/06/17 [History Confirmed 11/07/17] Dapagliflozin Propanediol [Farxiga] 1 tab PO DAILY 11/06/17 [History Confirmed 11/07/17] Ezetimibe [ZETIA 10 MG *] 1 tab PO DAILY 11/06/17 [History Confirmed 11/07/17] Levothyroxine Sodium [SYNTHROID 175 mcg *] 1 tab PO DAILY 11/06/17 [History Confirmed 11/07/17] - Review of Systems Constitutional: Weakness Eyes: No Symptoms Reported ENT: No Symptoms Reported Respiratory: Shortness of Breath Cardiovascular: Chest Pain Gastrointestinal: No Symptoms Reported Genitourinary: No Symptoms Reported Musculoskeletal: No Symptoms Reported Skin: No Symptoms Reported Neurological: No Symptoms Reported - Physical Exam Vital Signs: Temperature 97.6 F Pulse Rate [Left Apical] 65 Pulse Rate 20 Respiratory Rate 24 Blood Pressure [Left Arm] 113/67 Blood Pressure [Right Arm] 123/56 Blood Pressure 190/90 O2 Sat by Pulse Oximetry 100 Oriented: Normal Eyes: Normal Ear: Normal Throat: Normal Respiratory: Clear Throughout Cardiovascular: Tachycardia, Irregular : Normal Auscultation: Bowel Sounds: Normal Palpation: Normal Tenderness: Normal Skin: Normal Musculoskeletal: Normal Psychiatric: Normal Mood Description: Calm Speech Pattern: Clear, Appropriate - Assessment/Plan (1) Atrial fibrillation with RVR Status: Acute Plan: ADMIT, ICU CARDIZEM DRIP. 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 SERIAL CE AND EKG'S. BLOOD SUGAR CONTROL. CXR ON ADMISSION (2) Chest pain Qualifiers: Chest pain type: other chest pain Qualified Code(s): R07.89 - Other chest pain; R07.8 - Other chest pain Status: Acute (3) Diabetes mellitus type 1, uncontrolled Qualifiers: Chronic kidney disease stage: stage 3 (moderate) Status: Acute (4) Essential hypertension Status: Acute (5) Hyperlipidemia Status: Acute
--- NOTE | 2017-11-07 11:34 | PCM.PROG ---
Progress Note - Progress Note for Day of Date: 11/07/17 - Subjective Subjective: 52 WF ADMITTED ONE DAY AGO WITH NEW ONSET AFIB WITH RVR, PT PREVIOUSLY ON CARDIZEM DRIP, DC DUE TO LOWER BLOOD PRESSURE. PT STATES SHE FEELS BETTER THIS AM, JUST A LITTLE WEAK. PT DENIES CP THIS AM. PLAN TO TRANSPORT TO [facility] IN [facility] FOR HEART CATH. DISCUSSED PLANS WITH PT AND FAMILY - Past Medical Family Social History Past Med/Fam/Surg Hx: No changes since H&P Allergies: Allergies codeine Allergy (Unknown, Verified 11/06/17 14:39) - Review of Systems ROS: No change since H&P - Vital Signs and I&O's Vital Signs: Temperature 97.6 F Pulse Rate [Left Apical] 65 Pulse Rate 20 Respiratory Rate 24 Blood Pressure [Left Arm] 113/67 Blood Pressure [Right Arm] 123/56 Blood Pressure 190/90 O2 Sat by Pulse Oximetry 100 Intake and Output: Intake & Output 11/04/17 11/05/17 11/06/17 11/07/17 11:59 11:59 11:59 12:59 Intake Total 1575 Output Total 0 Balance 1575 - Physical Exam Oriented: Normal Eyes: Normal Ear: Normal Throat: Normal Cardiovascular: Tachycardia : Normal Auscultation: Bowel Sounds: Normal Tenderness: Normal Skin: Normal Musculoskeletal: Normal Psychiatric: Normal Mood Description: Calm Speech Pattern: Clear, Appropriate - Laboratory and Diagnostics Result Diagrams: 11/07/17 05:35 11/07/17 05:35 Labs: Laboratory WBC 9.4 X10^3/uL (3.6-10.0) 11/07/17 05:35 RBC 4.29 X10^6/uL (3.5-5.4) 11/07/17 05:35 Hgb 12.3 g/dL (12.0-16.0) 11/07/17 05:35 Hct 35.9 % (36.0-47.0) L 11/07/17 05:35 MCV 83.8 fL (80.0-100.0) 11/07/17 05:35 MCH 28.7 pg (27.0-34.0) 11/07/17 05:35 MCHC 34.3 g/dL (33.0-35.0) 11/07/17 05:35 RDW 14.4 % (11.6-16.5) 11/07/17 05:35 Plt Count 297 X10^3/uL (150.0-450.0) 11/07/17 05:35 MPV 9.4 fL (7.4-11.0) 11/07/17 05:35 Neut % 46.8 % (42.0-75.0) 11/07/17 05:35 Lymph % 46.7 % (21.0-51.0) 11/07/17 05:35 [place] % 3.6 % (0.0-13.0) 11/07/17 05:35 Eos % 2.0 % (0.9-2.9) 11/07/17 05:35 Baso % 0.9 % (0.2-1.0) 11/07/17 05:35 Neut # 4.4 x10^3/uL (2.2-4.8) 11/07/17 05:35 Lymph # 4.4 X10^3/uL (1.3-2.9) H 11/07/17 05:35 [place] # 0.3 x10^3/uL (0.3-0.8) 11/07/17 05:35 Eos # 0.2 x10^3/uL (0.0-0.2) 11/07/17 05:35 Baso # 0.1 X10^3/uL (0.0-0.1) 11/07/17 05:35 Absolute Nucleated RBC 0.0 /100WBC 11/07/17 05:35 INR Target Range - 11/06/17 15:15 INR 0.98 (0.8-1.3) 11/06/17 15:15 PTT 23.5 SECONDS (22.9-36.5) 11/06/17 15:15 PTT Comment - 11/06/17 15:15 D-Dimer < 100 ng/mL (0-400) 11/06/17 15:15 Sodium 141 mmol/L (136-145) 11/07/17 05:35 Corrected Sodium 144 mmol/L (136-145) 11/07/17 05:35 Potassium 4.5 mmol/L (3.5-5.1) 11/07/17 05:35 Chloride 108 mmol/L (98-107) H 11/07/17 05:35 Carbon Dioxide 23.3 mmol/L (21-32) 11/07/17 05:35 BUN 32 mg/dL (7-18) H 11/07/17 05:35 Creatinine 0.96 mg/dL (0.55-1.02) 11/07/17 05:35 Est GFR (MDRD) Af Amer > 60 (>60) 11/07/17 05:35 Est GFR (MDRD) Non-Af > 60 (>60) 11/07/17 05:35 Glucose 238 mg/dL (65-99) H 11/07/17 05:35 POC Glucose (mg/dL) 226 mg/dL (65-99) H 11/07/17 10:53 Calcium 8.4 mg/dL (8.5-10.1) L 11/07/17 05:35 Corrected Calcium 9.0 mg/dL (8.5-10.1) 11/07/17 05:35 Magnesium 1.8 mg/dL (1.7-2.9) 11/06/17 15:15 Total Bilirubin 0.20 mg/dL (0.2-1.0) 11/07/17 05:35 AST 23 Units/L (15-37) 11/07/17 05:35 ALT 43 Units/L (12-78) 11/07/17 05:35 Alkaline Phosphatase 39 Units/L (46-116) L 11/07/17 05:35 Creatine Kinase 20 Units/L (26-192) L 11/07/17 05:35 CK-MB (CK-2) < 1.0 ng/mL (0-4.0) 11/07/17 05:35 CK/CKMB % Calc 5.0 % (<4) 11/07/17 05:35 Troponin I < 0.02 ng/mL (0-1.5) 11/07/17 05:35 Total Protein 6.4 g/dL (6.4-8.2) 11/07/17 05:35 Albumin 3.3 g/dL (3.4-5.0) L 11/07/17 05:35 Globulin 3.1 g/dL (2.5-4.5) 11/07/17 05:35 Albumin/Globulin Ratio 1.1 Ratio (1.1-2.1) 11/07/17 05:35 Triglycerides 755 mg/dL (0-150) H 11/07/17 05:35 Cholesterol 205 mg/dL (0-200) H 11/07/17 05:35 LDL Cholesterol, Calc 36 mg/dL (0-100) 11/07/17 05:35 HDL Cholesterol 18 mg/dL (40-60) L 11/07/17 05:35 Cholesterol/HDL Ratio 11.4 (0.0-5.0) H 11/07/17 05:35 Free T4 1.14 ng/dL (0.76-1.46) 11/06/17 15:15 TSH 3rd Generation 2.621 uIU/mL (0.358-3.74) 11/06/17 15:15 - Plan (1) Atrial fibrillation with RVR Status: Acute 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 SERIAL CE AND EKG'S, ANTI- COAG THERAPY. BLOOD SUGAR CONTROL (2) Chest pain Status: Acute Qualifiers: Chest pain type: other chest pain Qualified Code(s): R07.89 - Other chest pain; R07.8 - Other chest pain Plan: BP AND CARDIAC MONITORING. PLAN FOR CARDIAC CATH AT [facility] ON WEDNESDAY (3) Diabetes mellitus type 1, uncontrolled Status: Acute Qualifiers: Chronic kidney disease stage: stage 3 (moderate) (4) Essential hypertension Status: Acute (5) Hyperlipidemia Status: Acute
[2017-11-07] MEDS ORDERED: SYNTHROID 175 mcg TAB PO SCH (16:00)
[2017-11-07] MEDS ORDERED: LEXAPRO ONE (16:12)
[2017-11-07] MEDS: ZETIA TAB 10 MG PO SCH (16:17)
[2017-11-07] MEDS: DAPAGLIFLOZIN PROPANEDIOL PO SCH (16:17)
[2017-11-07] MEDS: ASPIRIN PO SCH (16:17)
[2017-11-07] MEDS: PATIENT'S HOME MEDICATION (Diclofenac Sodium [Diclofenac Sodium] 75 MG) PO SCH ×2 (16:17→21:45)
[2017-11-07] MEDS: LEXAPRO PO SCH (16:17)
[2017-11-07] MEDS ORDERED: LIPITOR TAB 10 MG PO SCH (21:00)
[2017-11-07] MEDS: SNACK - Diabetic Appropriate PO SCH (21:44)
[2017-11-08] MEDS: NS 1000 ML 1,000 ML IV SCH (03:52)
[2017-11-08 05:14] LABS: BASOPHILS # (AUTO) 0.1 X10^3/uL (0.0-0.1); EOSINOPHILS # (AUTO) 0.2 x10^3/uL (0.0-0.2); EOSINOPHILS % (AUTO) 2.2 % (0.9-2.9); HEMATOCRIT 36.1 % (36.0-47.0); HEMOGLOBIN 12.3 g/dL (12.0-16.0); LYMPHOCYTES # (AUTO) 3.8 X10^3/uL (1.3-2.9); LYMPHOCYTES % (AUTO) 44.6 % (21.0-51.0); MEAN CORPUSCULAR HGB CONC 34.2 g/dL (33.0-35.0); MEAN CORPUSCULAR VOLUME 84.8 fL (80.0-100.0); MEAN PLATELET VOLUME 9.4 fL (7.4-11.0); MONOCYTES # (AUTO) 0.4 x10^3/uL (0.3-0.8); MONOCYTES % (AUTO) 4.3 % (0.0-13.0); NEUTROPHILS # (AUTO) 4.1 x10^3/uL (2.2-4.8); NEUTROPHILS % (AUTO) 47.9 % (42.0-75.0); PLATELET COUNT 278 X10^3/uL (150.0-450.0); RED BLOOD COUNT 4.25 X10^6/uL (3.5-5.4); RED CELL DISTRIBUTION WIDTH 14.3 % (11.6-16.5); WHITE BLOOD COUNT 8.5 X10^3/uL (3.6-10.0)
[2017-11-08 05:26] LABS: ALANINE AMINOTRANSFERASE 51 Units/L (12-78); ALBUMIN 3.1 g/dL (3.4-5.0); ALKALINE PHOSPHATASE 36 Units/L (46-116); BLOOD UREA NITROGEN 29 mg/dL (7-18); CALCIUM 8.3 mg/dL (8.5-10.1); CARBON DIOXIDE 24.6 mmol/L (21-32); CHLORIDE 107 mmol/L (98-107); COR NA(FOR HYPERGLY) 144 mmol/L (136-145); CREATININE 0.96 mg/dL (0.55-1.02); SODIUM 141 mmol/L (136-145); TOTAL PROTEIN 6.2 g/dL (6.4-8.2); eGFR BLACK RACES > 60 (>60); eGFR NON BLACK RACES > 60 (>60)
[2017-11-08 05:42] LABS: ASPARTATE AMINO TRANSFERASE 32 Units/L (15-37)
[2017-11-08] MEDS: HumuLIN R SC PRN (06:28)
[2017-11-08] MEDS ORDERED: LEXAPRO ONE (08:41)
[2017-11-08] MEDS: PROTONIX INJ 40 MG VIAL IVP SCH (08:48)
[2017-11-08] MEDS: ZETIA TAB 10 MG PO SCH (08:48)
[2017-11-08] MEDS: LEXAPRO PO SCH (08:48)
[2017-11-08] MEDS: ASPIRIN PO SCH (08:49)
[2017-11-08] MEDS: DAPAGLIFLOZIN PROPANEDIOL PO SCH (08:49)
[2017-11-08] MEDS: LOPRESSOR TAB 25 MG PO SCH (08:49)
[2017-11-08] MEDS: PATIENT'S HOME MEDICATION (Diclofenac Sodium [Diclofenac Sodium] 75 MG) PO SCH (08:49)
[2017-11-08] MEDS: LOVENOX INJ 80 MG SYR SC SCH (08:50)
[2017-11-08 09:10] LABS: FREE T4 (FREE THYROXINE) 1.09 ng/dL (0.76-1.46); TSH (3RD GENERATION) 4.065 uIU/mL (0.358-3.74)
[2017-11-08] MEDS ORDERED: XANAX PO ONE ×2 (09:11→10:40)
[2017-11-08] MEDS ORDERED: XANAX ONE (10:33)
[2017-11-08 10:47] VITALS: BP 130/72
== END 2017-11-08 10:45 | disposition short-term general hospital (02) | DRG 313 ==
LOC: ER 14:45 → ICU 17:54
PROVIDERS: ADMIT Internal Medicine; ATTEND Internal Medicine
DX: R07.89 Other chest pain (principal); I48.91 Unspecified atrial fibrillation; E10.65 Type 1 diabetes mellitus with hyperglycemia; R06.02 Shortness of breath; I25.10 Atherosclerotic heart disease of native coronary artery without angina pectoris; E78.2 Mixed hyperlipidemia; I12.9 Hypertensive chronic kidney disease with stage 1 through stage 4 chronic kidney disease, or unspecified chronic kidney disease; N18.3 Chronic kidney disease, stage 3 (moderate); R94.31 Abnormal electrocardiogram [ECG] [EKG]
CPT/HCPCS: 36415; 71045; 80053; 80061; 82550; 82553; 83735; 84439; 84443; 84484; 85025; 85378; 85610; 85730; 93005; 93010; 93041; 96365; 96367; 96374; 96375; 99284; 99285; A4216; A4222; C9113; J1650; J1815; J3490

== ENCOUNTER → 2017-12-20 | Outpatient (CLI) | payer BC ==
[~2017-12-20] MED LIST: NS 100 ML IV 0 ML IV ONE
--- NOTE | 2017-12-20 10:34 | CT ---
Indication: Pain Exam: CT abdomen and pelvis with contrast. Technique: Axial spiral images were obtained from the lung bases through the pubic symphysis after ad ministration of 100 cc Omnipaque 350 and oral contrast. Automated does control was utilized. Findings: There is mild dependent atelectasis along the lung bases posteriorly which is more prominen t on the right with a questionable tiny right pleural effusion. The liver and spleen are mildly enlar ged. There is fatty replacement throughout the liver. No focal lesion is seen. The gallbladder has be en removed. The bile ducts are normal caliber. The pancreas and adrenals are normal. The kidneys are normal size with no hydronephrosis, renal stone , or mass. The ureters are normal . The appendix is n ormal. There is no pericecal inflammation. The uterus and ovaries are grossly unremarkable. The bladd er is unremarkable. No adnexal mass or free fluid is seen . The mesentery is unremarkable. Degenerati ve changes are seen in the spine which is most prominent L5-S1 with no aggressive osseous lesions see n. Impression: Status post cholecystectomy with no acute intra-abdominal abnormality seen . Mild hepatosplenomegaly with fatty replacement throughout the liver. Mild bibasilar atelectasis which is more prominent on the right with a tiny right pleural effusion. S uggest follow-up with chest x-rays. No pelvic mass or inflammation. Reported By:
== END ==
LOC: RAD 08:42
PROVIDERS: ATTEND Nurse Practitioner Family
DX: R10.11 Right upper quadrant pain (principal); R10.31 Right lower quadrant pain; K46.9 Unspecified abdominal hernia without obstruction or gangrene
CPT/HCPCS: 74177; A4222

== ENCOUNTER → 2018-01-20 | Outpatient (CLI) | payer BC ==
--- NOTE | 2018-01-20 11:54 | RAD ---
Exam: Chest two views History: 52-year-old female with chest pain Comparison: Previous chest radiograph from 11/06/2017. Findings: Heart size and pulmonary vasculature are normal. Lungs are clear with no infiltrate or significant ef fusion on either side. Bony thorax is unremarkable as well. Impression: No acute cardiopulmonary abnormality is seen on this exam. Reported By:
== END ==
LOC: RAD 10:36
PROVIDERS: ATTEND Nurse Practitioner Family
DX: R93.8 Abnormal findings on diagnostic imaging of other specified body structures (principal)
CPT/HCPCS: 71046

== ENCOUNTER 2020-02-22 10:11 | Observation (INO) ==
[2020-02-22 11:33] VITALS: BMI 28.5
[2020-02-22 11:37] LABS: BILIRUBIN,URINE NEGATIVE (NEGATIVE); BLOOD/HEMOGLOBIN,URINE NEGATIVE (NEGATIVE); GLUCOSE, URINE 4+ (NEGATIVE); KETONES,URINE NEGATIVE (NEGATIVE); LEUKOCYTE ESTERASE ,URINE NEGATIVE (NEGATIVE); NITRITES,URINE NEGATIVE (NEGATIVE); PROTEIN,URINE 1+ (NEGATIVE); UROBILINOGEN,URINE NORMAL (NORMAL)
[2020-02-22 11:45] LABS: APPEARANCE,URINE CLEAR (CLEAR); COLOR,URINE YELLOW (YELLOW)
[2020-02-22 11:48] LABS: AMORPHOUS SEDIMENT,UR TRACE /HPF (NEGATIVE); BACTERIA,URINE TRACE /HPF (NEGATIVE); RBC,URINE 0-2 /HPF (0-3); SQUAMOUS EPITHELIAL CELL,UR FEW /HPF (NEGATIVE)
[2020-02-22] MEDS ORDERED: LEXAPRO PO SCH ×2 (12:00→21:00)
[2020-02-22] MEDS ORDERED: HumuLIN R SUBCUT PRN (13:06)
[2020-02-22] MEDS: NS 1000 ML 1,000 ML IV SCH (13:36)
[2020-02-22] MEDS: PriLOSEC PO SCH ×2 (13:42→21:03)
[2020-02-22 13:50] LABS: BLOOD UREA NITROGEN 44 mg/dL (7-18); CALCIUM 9.4 mg/dL (8.5-10.1); CARBON DIOXIDE 21.6 mmol/L (21-32); CHLORIDE 105 mmol/L (98-107); COR NA(FOR HYPERGLY) 139 mmol/L (136-145); CREATININE 1.46 mg/dL (0.55-1.02); SODIUM 138 mmol/L (136-145); TROPONIN I < 0.02 ng/mL (0-1.5); eGFR NON BLACK RACES 40 (>60)
[2020-02-22 13:55] LABS: CKMB % 1.9 % (<4); CREATINE KINASE 73 Units/L (26-192); CREATINE KINASE MB 1.4 ng/mL (0-4.0)
--- NOTE | 2020-02-22 14:47 | RAD ---
HISTORYCHEST PAIN, DMSTUDYCHEST, 1 VIEWCOMPARISONNoneFINDINGSThe trachea is midline. The cardiac silhouette is unremarkable . The lungs are clear without focal infiltrate or effusion. Multilevel spondylosis.IMPRESSIONNo acute cardiopulmonary disease.Electronically signed by: Mili Moya (Feb 22, 2020 14:46:05)
[2020-02-22] MEDS: SYNTHROID 125 mcg TAB PO SCH ×2 (17:00→18:21)
[2020-02-22] MEDS ORDERED: XANAX PO PRN (17:59)
--- NOTE | 2020-02-22 18:04 | DR.H&P ---
H&P - History & Physical for Day of: H&P Date: 02/22/20 - Chief Complaint Chief Complaint: CHEST PAIN, FATIGUE - History of Present Illness History of Present Illness: PT IS 54 WF ADMITTED WITH CO CHEST PAIN WORSE WITH EXERTION. PT CO "FEELING BAD" FOR SEVERAL WEEKS. REPORTS EIPSODES OF CHEST PAIN WITH NEW ONSET DIZZINESS THIS AM WHILE WORKING. PT DENIES ANY FEVER, CCC. PT HAD PMH OF UNCONTROLLED HYPERLIPIDEMIA, GERD, CAD,WITH STENTING IN 2018, HTN, HYPOTHYROIDISM AND DM. PT REPORTS SHE LAST SEEN DR KAPOOR IN 2018. PT ADMITTED FOR CHEST PAIN, RO [place] - Past Medical History Past Medical History: Coronary Artery Disease, Diabetes, Dyslipidemia, Hypertension, Hypothyroidism - Past Surgical History Surgical History: Cholecystectomy - Family History Family Medical History: Diabetes Mellitus, Cancer, [place], Coronary Artery Disease, Hypertension - Social History Does patient currently use any type of tobacco product: No Have you used tobacco products in the last 12 months: No Does any household member use tobacco: No Alcohol Use: None Drug Use: None Risks, benefits, and alternatives of opioids discussed: No - Medications Home Medications: codeine Allergy (Unknown, Verified 11/06/17 14:39) CONTINUE taking the following medications Gi Cocktail 10 ml PO QID 02/22/20 [History] ergocalciferol (vitamin D2) [Vitamin D2] 50,000 unit PO WEEKLY 02/22/20 [History] gemfibrozil [Lopid] 600 mg PO BID 02/22/20 [History] insulin lispro [Humalog U-100 Insulin] 02/22/20 [History] levothyroxine [Synthroid] 125 mcg PO DAILY 02/22/20 [History] metformin 1,000 mg PO BID 02/22/20 [History] omeprazole magnesium [Prilosec OTC] 40 mg PO BID 02/22/20 [History] - Review of Systems Constitutional: Malaise Eyes: No Symptoms Reported ENT: No Symptoms Reported Respiratory: SOB with Excertion Cardiovascular: Chest Pain, Light Headedness Gastrointestinal: No Symptoms Reported Genitourinary: No Symptoms Reported Musculoskeletal: No Symptoms Reported Skin: No Symptoms Reported Neurological: Other (DIZZY SPELLS) - Physical Exam Vital Signs: Temperature 98.1 F Pulse Rate [Right Brachial] 59 Respiratory Rate 20 Blood Pressure [Left Arm] 130/72 Blood Pressure [Right Arm] 111/57 Blood Pressure 117/60 O2 Sat by Pulse Oximetry 96 Oriented: Normal Eyes: Normal Ear: Normal Nose: Normal Throat: Normal Respiratory: Clear Throughout Cardiovascular: Normal : Normal Auscultation: Bowel Sounds: Normal Palpation: Normal Tenderness: Normal Skin: Normal Musculoskeletal: Normal Psychiatric: Normal Mood Description: Calm Speech Pattern: Clear, Appropriate - Assessment/Plan (1) Chest pain, rule out acute myocardial infarction Status: Acute Plan: ADMIT, SERIAL CE AND EKG. CXR ON ADMISSION. RAPID COVID. BP CONTROL, GENTLE IV HYDRATION, STRICT I &OS. EKG MONITORING, CONFIRM HOME MEDICATION, PRN 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 ASPIRIN, STATIN THERAPY, BS CONTROL (2) Hyperkalemia Status: Acute (3) Hypothyroidism Status: Acute (4) Diabetes mellitus, type 2 Status: Chronic (5) Hyperlipidemia Status: Chronic (6) Hypertension Status: Chronic - Allergies Allergies/Adverse Reactions: Allergies Allergy/AdvReac Type Severity Reaction Status Date / Time codeine Allergy Unknown Verified 11/06/17 14:39
[2020-02-22] MEDS: PROTONIX INJ 40 MG VIAL IVP SCH (18:13)
[2020-02-22] MEDS: PLAVIX PO SCH (18:20)
[2020-02-22 19:43] LABS: CKMB % 1.9 % (<4); CREATINE KINASE 62 Units/L (26-192); CREATINE KINASE MB 1.2 ng/mL (0-4.0); TROPONIN I < 0.02 ng/mL (0-1.5)
[2020-02-22] MEDS ORDERED: SNACK - Diabetic Appropriate PO SCH (20:00)
[2020-02-22] MEDS ORDERED: LEXAPRO ONE (20:27)
[2020-02-22] MEDS ORDERED: LIPITOR TAB 10 MG PO SCH (21:00)
[2020-02-22] MEDS: LOPID PO SCH (21:03)
[2020-02-23 02:11] LABS: CKMB % 1.9 % (<4); TROPONIN I < 0.02 ng/mL (0-1.5)
[2020-02-23 02:12] LABS: CREATINE KINASE 53 Units/L (26-192)
[2020-02-23 06:27] LABS: BASOPHILS # (AUTO) 0.1 X10^3/uL (0.0-0.1); BASOPHILS % (AUTO) 0.8 % (0.2-1.0); EOSINOPHILS # (AUTO) 0.3 x10^3/uL (0.0-0.2); EOSINOPHILS % (AUTO) 3.1 % (0.9-2.9); HEMATOCRIT 35.2 % (36.0-47.0); HEMOGLOBIN 11.7 g/dL (12.0-16.0); LYMPHOCYTES # (AUTO) 2.5 X10^3/uL (1.3-2.9); LYMPHOCYTES % (AUTO) 30.4 % (21.0-51.0); MEAN CORPUSCULAR HEMOGLOBIN 30.2 pg (27.0-34.0); MEAN CORPUSCULAR HGB CONC 33.4 g/dL (33.0-35.0); MEAN CORPUSCULAR VOLUME 90.6 fL (80.0-100.0); MEAN PLATELET VOLUME 8.7 fL (7.4-11.0); MONOCYTES # (AUTO) 0.4 x10^3/uL (0.3-0.8); MONOCYTES % (AUTO) 4.9 % (0.0-13.0); NEUTROPHILS % (AUTO) 60.8 % (42.0-75.0); PLATELET COUNT 313 X10^3/uL (150.0-450.0); RED BLOOD COUNT 3.89 X10^6/uL (3.5-5.4); RED CELL DISTRIBUTION WIDTH 14.4 % (11.6-16.5); WHITE BLOOD COUNT 8.3 X10^3/uL (3.6-10.0)
[2020-02-23 06:38] LABS: ALANINE AMINOTRANSFERASE 19 Units/L (12-78); ALBUMIN 3.7 g/dL (3.4-5.0); ALKALINE PHOSPHATASE 71 Units/L (46-116); ASPARTATE AMINO TRANSFERASE 11 Units/L (15-37); BLOOD UREA NITROGEN 37 mg/dL (7-18); CALCIUM 9.4 mg/dL (8.5-10.1); CARBON DIOXIDE 18.5 mmol/L (21-32); CHLORIDE 106 mmol/L (98-107); COR NA(FOR HYPERGLY) 139 mmol/L (136-145); CREATININE 1.13 mg/dL (0.55-1.02); MAGNESIUM 1.8 mg/dL (1.7-2.9); SODIUM 137 mmol/L (136-145); TOTAL PROTEIN 7.3 g/dL (6.4-8.2); eGFR NON BLACK RACES 54 (>60)
[2020-02-23 08:32] LABS: CKMB % 2.1 % (<4); CREATINE KINASE 48 Units/L (26-192); TROPONIN I < 0.02 ng/mL (0-1.5)
[2020-02-23] MEDS: NS 1000 ML 1,000 ML IV SCH (09:08)
[2020-02-23] MEDS: PROTONIX INJ 40 MG VIAL IVP SCH (09:10)
[2020-02-23] MEDS: LOPID PO SCH (09:30)
[2020-02-23] MEDS: SYNTHROID 125 mcg TAB PO SCH (09:53)
[2020-02-23] MEDS: PriLOSEC PO SCH (09:53)
[2020-02-23] MEDS: PLAVIX PO SCH (09:54)
[2020-02-23] MEDS ORDERED: BENADRYL INJ 50 MG VIAL IVP PRN (12:01)
[2020-02-23] MEDS ORDERED: XANAX PO ONE (18:15)
[2020-02-23 18:34] VITALS: BP 141/66
== END 2020-02-23 18:30 | disposition short-term general hospital (02) ==
LOC: MED/SURG
PROVIDERS: ADMIT Internal Medicine; ATTEND Internal Medicine
DX: E03.8 Other specified hypothyroidism; R06.02 Shortness of breath; I25.10 Atherosclerotic heart disease of native coronary artery without angina pectoris; Z79.01 Long term (current) use of anticoagulants; R42 Dizziness and giddiness; R53.83 Other fatigue; E87.5 Hyperkalemia; E11.65 Type 2 diabetes mellitus with hyperglycemia; I10 Essential (primary) hypertension; R07.89 Other chest pain
CPT/HCPCS: 36415; 71010; 71045; 80048; 80053; 81001; 82550; 82553; 83735; 84484; 85025; 87635; 93005; 94760; 96360; 96361; 96372; 96374; A4222; C9113; G0378; J1200; J1815; J7030

== ENCOUNTER 2020-12-19 08:24 | Inpatient (IN) ==
[2020-12-19 09:04] LABS: BASOPHILS # (AUTO) 0.1 X10^3/uL (0.0-0.1); BASOPHILS % (AUTO) 0.8 % (0.2-1.0); EOSINOPHILS # (AUTO) 0.3 x10^3/uL (0.0-0.2); HEMATOCRIT 35.1 % (36.0-47.0); HEMOGLOBIN 11.5 g/dL (12.0-16.0); LYMPHOCYTES # (AUTO) 1.9 X10^3/uL (1.3-2.9); LYMPHOCYTES % (AUTO) 19.2 % (21.0-51.0); MEAN CORPUSCULAR HEMOGLOBIN 28.6 pg (27.0-34.0); MEAN CORPUSCULAR HGB CONC 32.8 g/dL (33.0-35.0); MEAN PLATELET VOLUME 8.7 fL (7.4-11.0); MONOCYTES # (AUTO) 0.5 x10^3/uL (0.3-0.8); MONOCYTES % (AUTO) 4.7 % (0.0-13.0); NEUTROPHILS # (AUTO) 7.1 x10^3/uL (2.2-4.8); NEUTROPHILS % (AUTO) 72.3 % (42.0-75.0); PLATELET COUNT 388 X10^3/uL (150.0-450.0); RED BLOOD COUNT 4.04 X10^6/uL (3.5-5.4); RED CELL DISTRIBUTION WIDTH 17.2 % (11.6-16.5); RETICULOCYTE % 3.95 % (0.8-2.2); WHITE BLOOD COUNT 9.8 X10^3/uL (3.6-10.0)
[2020-12-19 09:29] LABS: ALANINE AMINOTRANSFERASE 29 Units/L (12-78); ALBUMIN 3.6 g/dL (3.4-5.0); ALKALINE PHOSPHATASE 94 Units/L (46-116); ASPARTATE AMINO TRANSFERASE 16 Units/L (15-37); BLOOD UREA NITROGEN 45 mg/dL (7-18); CALCIUM 9.2 mg/dL (8.5-10.1); CARBON DIOXIDE 19.9 mmol/L (21-32); CHLORIDE 106 mmol/L (98-107); COR NA(FOR HYPERGLY) 142 mmol/L (136-145); CREATININE 1.63 mg/dL (0.55-1.02); FREE T4 (FREE THYROXINE) 0.94 ng/dL (0.76-1.46); SODIUM 139 mmol/L (136-145); TOTAL PROTEIN 7.5 g/dL (6.4-8.2); TSH (3RD GENERATION) 0.106 uIU/mL (0.358-3.74); eGFR NON BLACK RACES 35 (>60)
[2020-12-19 09:57] LABS: IRON 70 ug/dL (50-175)
[2020-12-19 11:28] LABS: CKMB % 2.2 % (<4); CREATINE KINASE 45 Units/L (26-192); CREATINE KINASE MB < 1.0 ng/mL (0-4.0); TROPONIN I < 0.02 ng/mL (0-1.5)
[2020-12-19] MEDS: KAYEXALATE SUSP PO SCH ×2 (12:01→18:02)
[2020-12-19] MEDS: NS 1000 ML 1,000 ML IV SCH ×2 (12:01→20:39)
[2020-12-19 13:34] LABS: BILIRUBIN,URINE NEGATIVE (NEGATIVE); BLOOD/HEMOGLOBIN,URINE 1+ (NEGATIVE); GLUCOSE, URINE 4+ (NEGATIVE); KETONES,URINE NEGATIVE (NEGATIVE); LEUKOCYTE ESTERASE ,URINE 2+ (NEGATIVE); NITRITES,URINE NEGATIVE (NEGATIVE); PROTEIN,URINE 1+ (NEGATIVE); UROBILINOGEN,URINE NORMAL (NORMAL)
[2020-12-19 13:37] LABS: IRON 65 ug/dL (50-175)
[2020-12-19 13:53] LABS: CKMB % 2.5 % (<4); CREATINE KINASE 40 Units/L (26-192); CREATINE KINASE MB < 1.0 ng/mL (0-4.0); TROPONIN I < 0.02 ng/mL (0-1.5)
[2020-12-19 13:56] LABS: APPEARANCE,URINE HAZY (CLEAR); BACTERIA,URINE 1+ /HPF (NEGATIVE); COLOR,URINE YELLOW (YELLOW); HYALINE CASTS, URINE MODERATE /LPF (NEGATIVE); SQUAMOUS EPITHELIAL CELL,UR MODERATE /HPF (NEGATIVE)
[2020-12-19 13:57] LABS: MUCUS,URINE FEW /HPF (NEGATIVE)
--- NOTE | 2020-12-19 14:38 | US ---
HISTORYTHYROIDMEGALYSTUDYTHYROID ultrasoundCOMPARISONNoneTECHNIQUEMultiple grayscale and color-flow Doppler images of the thyroid were obtained.FINDINGSRight lobe measures 2.8 x 1.0 x 0.8 cm. Left lobe measures 3.3 x 1.1 x 1.1 cm.Thyro id gland appears heterogeneous. There is a 5 x 5 x 5 mm slightly hypoechoic nodule in the mid right l obe. There is an 8 x 3 x 6 mm hypoechoic nodule in the left lobe.IMPRESSIONTiny thyroid nodules are s een with TI rads level 4. Consider follow-up ultrasound in 2 years time.Electronically signed by: Tommy Cardenas (Dec 19, 2020 14:36:17)
[2020-12-19 16:16] LABS: CKMB % 2.4 % (<4); CREATINE KINASE 41 Units/L (26-192); CREATINE KINASE MB < 1.0 ng/mL (0-4.0); TROPONIN I < 0.02 ng/mL (0-1.5)
--- NOTE | 2020-12-19 16:54 | DR.H&P ---
H&P - History & Physical for Day of: H&P Date: 12/19/20 - Chief Complaint Chief Complaint: VERY WEAK, FATIGUE. PT SENT FOR ADMISSION DUE TO ABNORMAL OUTPT LABS - History of Present Illness History of Present Illness: PT IS 55 WF ADMITTED DUE TO CO FEELING VERY WEAK AND FATIGUED FOR OVER A WEEK. PT HAS PMH OF CAD, HTN, OA, DM, OA, HYPOTHYROIDISM. PT HAD INCREASE IN SYNTHROID DOSE ONE MONTH AGO DUE TO ELEVATED TSH. PT HAD REPEAT LABS REVEALING HYPERKALEMIA AND ACUTE DEHYDRATION. PT ADMITTED FOR TREATMENT OF ACUTE ILLNESS. - Past Medical History Past Medical History: Coronary Artery Disease, Diabetes, Dyslipidemia, Hypertension, Hypothyroidism - Past Surgical History Surgical History: Cholecystectomy, [employer] FINAL Surgery - Family History Family Medical History: Diabetes Mellitus, Cancer, [place] - Social History Does patient currently use any type of tobacco product: No Have you used tobacco products in the last 12 months: No Type of Tobacco Use: None Does any household member use tobacco: No Alcohol Use: None Drug Use: None - Medications Home Medications: codeine Allergy (Unknown, Verified 11/06/17 14:39) CONTINUE taking the following medications atorvastatin 40 mg PO HS 12/19/20 [History] diclofenac sodium 75 mg PO BID 12/19/20 [History] glipizide 20 mg PO BID 12/19/20 [History] levothyroxine 175 mcg PO DAILY 12/19/20 [History] lisinopril 10 mg PO DAILY 12/19/20 [History] metoprolol tartrate 25 mg PO BID 12/19/20 [History] omeprazole 40 mg PO BID 12/19/20 [History] semaglutide [Ozempic] 0.5 mg SUBCUT .Wednesday12/19/20 [History] - Review of Systems Constitutional: Weakness, Malaise Eyes: No Symptoms Reported ENT: No Symptoms Reported Respiratory: No Symptoms Reported Cardiovascular: Palpitations, Light Headedness Gastrointestinal: Nausea Genitourinary: No Symptoms Reported Musculoskeletal: No Symptoms Reported Skin: No Symptoms Reported Neurological: Weakness - Physical Exam Vital Signs: Temperature 98.6 F Pulse Rate [Left Radial] 72 Respiratory Rate 18 Blood Pressure [Left Arm] 116/60 O2 Sat by Pulse Oximetry 98 Oriented: Normal Eyes: Normal Ear: Normal Nose: Normal Throat: Dry Respiratory: RLL Diminished, LLL Diminished Cardiovascular: Normal : Normal, Hematuria Palpation: Normal Tenderness: Normal Skin: Decreased Turgur Psychiatric: Normal Speech Pattern: Clear, Appropriate - Assessment/Plan (1) Hyperkalemia Status: Acute Plan: ADMIT, GENTLE IV HYDRATION. COVID 19 SWAB ON ADMISSION. STRICT I&OS, SERIAL CE AND EKG. KAYEXALATE PO, REPEAT K LEVEL. CARDIAC MONITORING, BS CONTROL, BP CONTROL (2) Dehydration Status: Acute (3) Hypothyroidism Status: Acute (4) Diabetes mellitus, type 2 Status: Chronic (5) Hypertension Status: Chronic (6) Hyperlipidemia Status: Chronic - Allergies Allergies/Adverse Reactions: Allergies Allergy/AdvReac Type Severity Reaction Status Date / Time codeine Allergy Unknown Verified 11/06/17 14:39
[2020-12-19 17:43] LABS: ALBUMIN 3.3 g/dL (3.4-5.0); CALCIUM 8.7 mg/dL (8.5-10.1); CARBON DIOXIDE 21.3 mmol/L (21-32); COR CA(FOR HYPOALB) 9.3 mg/dL (8.5-10.1); CREATININE 1.45 mg/dL (0.55-1.02); TOTAL PROTEIN 6.7 g/dL (6.4-8.2)
[2020-12-19] MEDS: HumuLIN R SC PRN ×2 (17:53→20:39)
[2020-12-19] MEDS ORDERED: LEXAPRO ONE (20:03)
[2020-12-19] MEDS: LOPRESSOR TAB 25 MG PO SCH (20:41)
[2020-12-19] MEDS ORDERED: LIPITOR TAB 40 MG PO SCH (21:00)
[2020-12-19] MEDS ORDERED: LEXAPRO PO SCH (21:00)
[2020-12-19 21:13] LABS: CREATINE KINASE 33 Units/L (26-192); CREATINE KINASE MB < 1.0 ng/mL (0-4.0); TROPONIN I < 0.02 ng/mL (0-1.5)
[2020-12-20] MEDS: NS 1000 ML 1,000 ML IV SCH (03:51)
[2020-12-20 05:06] LABS: BASOPHILS # (AUTO) 0.1 X10^3/uL (0.0-0.1); BASOPHILS % (AUTO) 0.7 % (0.2-1.0); EOSINOPHILS # (AUTO) 0.3 x10^3/uL (0.0-0.2); EOSINOPHILS % (AUTO) 4.3 % (0.9-2.9); HEMATOCRIT 29.6 % (36.0-47.0); HEMOGLOBIN 9.8 g/dL (12.0-16.0); LYMPHOCYTES # (AUTO) 2.2 X10^3/uL (1.3-2.9); LYMPHOCYTES % (AUTO) 31.3 % (21.0-51.0); MEAN CORPUSCULAR HEMOGLOBIN 28.6 pg (27.0-34.0); MEAN CORPUSCULAR VOLUME 86.8 fL (80.0-100.0); MEAN PLATELET VOLUME 8.9 fL (7.4-11.0); MONOCYTES # (AUTO) 0.4 x10^3/uL (0.3-0.8); MONOCYTES % (AUTO) 5.8 % (0.0-13.0); NEUTROPHILS # (AUTO) 4.1 x10^3/uL (2.2-4.8); NEUTROPHILS % (AUTO) 57.9 % (42.0-75.0); PLATELET COUNT 299 X10^3/uL (150.0-450.0); RED BLOOD COUNT 3.41 X10^6/uL (3.5-5.4); RED CELL DISTRIBUTION WIDTH 16.9 % (11.6-16.5); WHITE BLOOD COUNT 7.1 X10^3/uL (3.6-10.0)
[2020-12-20 05:14] LABS: ALANINE AMINOTRANSFERASE 26 Units/L (12-78); ALKALINE PHOSPHATASE 74 Units/L (46-116); ASPARTATE AMINO TRANSFERASE 13 Units/L (15-37); BLOOD UREA NITROGEN 27 mg/dL (7-18); CALCIUM 8.8 mg/dL (8.5-10.1); CARBON DIOXIDE 23.3 mmol/L (21-32); CHLORIDE 111 mmol/L (98-107); COR CA(FOR HYPOALB) 9.6 mg/dL (8.5-10.1); CREATININE 0.95 mg/dL (0.55-1.02); SODIUM 145 mmol/L (136-145); TOTAL PROTEIN 6.2 g/dL (6.4-8.2); eGFR NON BLACK RACES > 60 (>60)
[2020-12-20] MEDS ORDERED: PLAVIX PO SCH (09:00)
[2020-12-20] MEDS ORDERED: ZESTRIL TAB 10 MG PO SCH (09:00)
[2020-12-20 09:46] VITALS: BP 114/52
[2020-12-20] MEDS: LOPRESSOR TAB 25 MG PO SCH (10:02)
== END 2020-12-20 11:10 | disposition home or self-care (01) | DRG 684 ==
LOC: LAB 08:24 → MED/SURG 08:24 → INTOOBSV 10:20 → OBSVTOIN 10:20
PROVIDERS: ADMIT Internal Medicine; ATTEND Internal Medicine
DX: I25.10 Atherosclerotic heart disease of native coronary artery without angina pectoris; E86.0 Dehydration; E78.2 Mixed hyperlipidemia; E87.5 Hyperkalemia; E11.65 Type 2 diabetes mellitus with hyperglycemia; N17.8 Other acute kidney failure; R94.31 Abnormal electrocardiogram [ECG] [EKG]; R79.89 Other specified abnormal findings of blood chemistry; I10 Essential (primary) hypertension; E04.2 Nontoxic multinodular goiter; Z20.822 Contact with and (suspected) exposure to COVID-19